=== PATIENT | female | born 2000 | race Caucasian/White ===

== ENCOUNTER 2020-09-16 20:05 | Observation (INO) | payer OTHER ==
[~2020-09-16] VITALS: Ht 154.9 cm; Wt 44.5 kg
== END 2020-09-16 21:30 | disposition home or self-care (01) ==
LOC: SPU 20:05
PROVIDERS: ADMIT Obstetrics & Gynecology; ATTEND Obstetrics & Gynecology
DX: O62.9 Abnormality of forces of labor, unspecified (principal); Z3A.37 37 weeks gestation of pregnancy
CPT/HCPCS: 81002; G0378

== ENCOUNTER 2020-09-22 15:20 | Observation (INO) | payer OTHER, SELFPAY ==
[~2020-09-22] VITALS: Ht 154.9 cm; Wt 59.9 kg
[2020-09-22 15:40] VITALS: BP_SYST 103
--- NOTE | 2020-09-22 15:50 | NUR ---
Patient to ER bed 6 to gown for evaluation. Side rails up.
--- NOTE | 2020-09-22 15:51 | NUR ---
Patient presented to ER C/O fever. Patient ambulatory to ER, A&Ox4, skin pink & warm, nausea present, denies V/D, pain 5/10. Patient states she had nosebleed today, inadvertently swallowed blood from nose bleed and emesis x1 prior to coming to ER. Patient states she has fever x3 days, chills x2 days and headache, back pain and right lower quadrant pain today. Patient is 37 weeks .
--- NOTE | 2020-09-22 15:55 | NUR ---
ER Dr. Clemente at bedside examining patient.
[2020-09-22 16:23] LABS: BILIRUBIN,URINE NEGATIVE (NEGATIVE); CLARITY/URINE CLEAR (CLEAR); COLOR,URINE YELLOW (YELLOW); GLUCOSE,URINE NEGATIVE (NEGATIVE); KETONES,URINE NEGATIVE (NEGATIVE); LEUKOCYTE ESTERASE ,URINE 2+ (NEGATIVE); NITRITE, URINE NEGATIVE (NEGATIVE); PROTEIN URINE TRACE (NEGATIVE)
[2020-09-22 16:27] LABS: BLOOD, URINE TRACE (NEGATIVE)
[2020-09-22] MEDS ORDERED: ACETAMINOPHEN 325 MG TABLET PO ONE (16:45)
[2020-09-22] MEDS ORDERED: METOCLOPRAMIDE HCL 10 MG TABLET PO ONE (16:45)
--- NOTE | 2020-09-22 16:46 | NUR ---
Patient transported to radiology via AMBULATORY, accompanied by STAFF.
[2020-09-22 16:53] LABS: BACTERIA,URINE MODERATE /HPF (None Seen); RBC,URINE 0-3 /HPF (0-3)
[2020-09-22] MEDS ORDERED: NACL 0.9% 1,000 ML IV ONE (17:15)
--- NOTE | 2020-09-22 17:15 | NUR ---
ER Dr. Clemente at bedside discuss patient.
[2020-09-22 17:47] LABS: BASOPHILS % (AUTO) 0.3 % (0.0-2.0); EOSINOPHILS # (AUTO) 0.1 K/uL (0.0-0.4); EOSINOPHILS % (AUTO) 0.9 % (0.0-4.0); HEMATOCRIT 34.3 % (36-48); HEMOGLOBIN 11.7 g/dL (12.0-16.0); LYMPHOCYTES # (AUTO) 1.2 K/uL (1.0-5.5); LYMPHOCYTES % (AUTO) 9.2 % (20.5-51.5); MEAN CORPUSCULAR HEMOGLOBIN 31 pg (27-31); MEAN CORPUSCULAR HGB CONC 34 % (32-36); MEAN CORPUSCULAR VOLUME 92 fL (79.0-98.0); MONOCYTES # (AUTO) 1.2 K/uL (0.0-1.0); MONOCYTES % (AUTO) 9.8 % (1.7-9.3); NEUTROPHILS # (AUTO) 10.1 K/uL (1.8-7.7); NEUTROPHILS % (AUTO) 79.8 % (40.0-70.0); PLATELET COUNT (AUTO) 151 K/uL (130-430); RED BLOOD CELL COUNT(AUTO) 3.75 MIL/uL (4.2-6.2); RED CELL DISTRIBUTION WIDTH 13.4 % (9.0-15.0); WHITE BLOOD COUNT (AUTO) 12.6 K/uL (4.5-11.0)
[2020-09-22 17:56] LABS: CALCIUM 8.7 mg/dL (8.4-11.0); CREATININE 0.82 mg/dL (0.55-1.30); POTASSIUM 3.8 mmol/L (3.5-5.1)
[2020-09-22 18:02] LABS: ALBUMIN 2.5 g/dL (3.4-4.8); TOTAL BILIRUBIN 0.6 mg/dL (0.0-1.0)
--- NOTE | 2020-09-22 18:15 | NUR ---
# 20 gauge angiocath placed to left ac. Use of asceptic technique. Opsite placed over site. Blood return noted. Blood for lab drawn from site Flushed with 10 cc of normal saline. No evidence of infiltration noted. Patient tolerated well.
[2020-09-22] MEDS ORDERED: cefTRIAXone 1 GM in D5W 50 ML IV ONE (18:30)
[2020-09-22] MEDS ORDERED: cefTRIAXone 1 GM VIAL ONE (18:39)
--- NOTE | 2020-09-22 19:05 | NUR ---
Report to [facility]
--- NOTE | 2020-09-22 19:17 | NUR ---
PORTER TO ASSUME CARE, PT CALM, ALERT, RESP UNLABORED, SKIN WARM AND DRY. DENIES CP/SOB
--- NOTE | 2020-09-22 19:41 | NUR ---
DR ARMENDARIZ IN TO DISCUSS RESULTS
--- NOTE | 2020-09-22 19:51 | NUR ---
Patient given written and verbal discharge instructions and verbalizes understanding. ER MD discussed with patient the results and treatment provided. Patient in stable condition. ID arm band removed. Patient educated on pain management and to follow up with PMD. Pain Scale 0/10 Opportunity for questions provided and answered. sbar report to rn on floor. transported to floor via
[2020-09-22 19:52] VITALS: BP_SYST 103
== END 2020-09-22 21:44 | disposition home or self-care (01) ==
LOC: SED 15:20 → SPU 19:51
PROVIDERS: ADMIT Obstetrics & Gynecology; ATTEND Obstetrics & Gynecology
DX: O99.891 Other specified diseases and conditions complicating pregnancy (principal); N13.30 Unspecified hydronephrosis; Z20.822 Contact with and (suspected) exposure to COVID-19; O23.03 Infections of kidney in pregnancy, third trimester; Z3A.37 37 weeks gestation of pregnancy
CPT/HCPCS: 36415; 76770; 80053; 81000; 83690; 85025; 87086; 87426; 96365; 99284; G0378; J0696; J7030; J8597